=== PATIENT | male | born 1995 ===

== ENCOUNTER 2018-02-16 18:00 | Inpatient (IN) | payer MEDICAID, OTHER ==
[2018-02-16] MEDS ORDERED: Morphine 4 MG/ML VIAL ONE ×2 (18:24→20:15)
[2018-02-16] MEDS ORDERED: Tdap Vaccine 0.5 ml Vial (10-64 yrs) IM ONE ×2 (18:27→18:33)
--- NOTE | 2018-02-16 18:27 | ED PDOC ---
Upper Extremity Pain/Injury Time Seen by Provider: 02/16/18 18:05 Chief Complaint (Nursing): Upper Extremity Problem/Injury Chief Complaint (Provider): Upper Extremity Problem/Injury History Per: Patient History/Exam Limitations: no limitations Current Symptoms Are (Timing): Still Present Additional Complaint(s): 23 y/o male presents to the ED complaining of left forearm pain s/p skateboard fall at approximately 2.5 hours prior to arrival. Patient states he slipped and fell landing on his left forearm. Patient states last meal was at 2 PM today and he last drank water after fall due to lightheadedness. PMD: None Provided Past Medical History Reviewed: Historical Data, Nursing Documentation, Vital Signs Vital Signs: Last Vital Signs Temp 97.7 F 02/16/18 18:06 Pulse 79 02/16/18 18:06 Resp 18 02/16/18 18:06 BP 139/92 H 02/16/18 18:06 Pulse Ox 98 02/16/18 18:06 - Medical History PMH: No Chronic Diseases - Surgical History Surgical History: No Surg Hx - Family History Family History: States: Unknown Family Hx - Social History Current smoker - smoking cessation education provided: No Alcohol: None Drugs: Denies - Allergies Allergies/Adverse Reactions: Allergies Allergy/AdvReac Type Severity Reaction Status Date / Time No Known Allergies Allergy Verified 02/16/18 18:06 Review of Systems ROS Statement: Except As Marked, All Systems Reviewed And Found Negative Musculoskeletal: Positive for: Arm Pain (Left forearm pain ) Physical Exam - Reviewed Nursing Documentation Reviewed: Yes Vital Signs Reviewed: Yes - Physical Exam Appears: Positive for: Non-toxic, No Acute Distress Head Exam: Positive for: ATRAUMATIC, NORMOCEPHALIC Skin: Positive for: Normal Color, Warm, Dry Eye Exam: Positive for: Normal appearance, EOMI, PERRL Neck: Positive for: Normal, Painless ROM Cardiovascular/Chest: Positive for: Regular Rate, Rhythm. Negative for: Murmur Respiratory: Positive for: Normal Breath Sounds. Negative for: Respiratory Distress Gastrointestinal/Abdominal: Positive for: Normal Exam Extremity: Positive for: Deformity (to the left forearm with open wound ) Neurologic/Psych: Positive for: Alert, Oriented (x3). Negative for: Motor/ Sensory Deficits - Laboratory Results Result Diagrams: 02/17/18 05:30 02/17/18 05:30 - ECG O2 Sat by Pulse Oximetry: 98 (RA) Pulse Ox Interpretation: Normal Medical Decision Making Medical Decision Making: -- CODE ORTHO called upon arrival to the ED labs and morphine ordered pt in distress due to L open radius ulna fracture Time: 1849 Plan: -- Type and Screen -- CMP -- CBC with differentials -- PTT -- Prothrombin Time -- Ancef IV 2 gm DUPLEX in 50 ml IVPB -- Adacel (10-64 yrs) 0.5 ml IM -- Morphine 4 mg IV -- Unasyn 3 gm (after spoke to orthopedics they requested changed to ancef) Sodium Chloride 0.9% 100 ml IVPB -- Blood Culture -- Left Forearm XR -- Call made to Esperanza Sutton (ortho manager inspection) who states he is unsure if he is the one manager inspection but will call back once he is sure. -- Herman calls back and states he is in fact the one manager inspection and instructed to apply a sugar tong splint after complete irrigation, immobilize him and he will call back with update. informed pt of plan. Time: 2099 -- Patient endorsed to Dr. Hogan, pending Orthopedic consultation. Scribe Attestation: Documented by Radha Marrufo acting as a scribe for Dr. Juan Manuel Hogan MD. Provider Scribe Attestation: All medical record entries made by the Scribe were at my direction and personally dictated by me. I have reviewed the chart and agree that the record accurately reflects my personal performance of the history, physical exam, medical decision making, and the department course for this patient. I have also personally directed, reviewed, and agree with the discharge instructions and disposition. Disposition - Clinical Impression Clinical Impression: Open left forearm fracture - Patient ED Disposition Is Patient to be Admitted: Transfer of Care - Disposition Disposition: Transfer of Care Disposition Time: 19:00 Condition: FAIR Patient Signed Over To: Juan Manuel Hogan
[2018-02-16 19:11] LABS: BASO % 0.3 % (0.0-2.0); EOS # 0.1 K/uL (0.0-0.7); EOS % 0.8 % (0.0-4.0); HEMOGLOBIN 15.9 g/dL (12.0-18.0); LYMPH # 1.2 K/uL (1.0-4.3); LYMPH % 10.9 % (20.0-40.0); MEAN CORPUSCULAR HEMOGLOBIN 30.9 pg (27.0-31.0); MEAN CORPUSCULAR HGB CONC 34.4 g/dL (33.0-37.0); MEAN PLATELET VOLUME 9.1 fl (7.2-11.7); MONO # 0.7 K/uL (0.0-0.8); MONO % 6.1 % (0.0-10.0); NEUT # 9.3 K/uL (1.8-7.0); NEUT % 81.9 % (50.0-75.0); RBC 5.15 Mil/uL (4.40-5.90); RED CELL DISTRIBUTION WIDTH 13.3 % (11.5-14.5); WHITE BLOOD COUNT 11.3 K/uL (4.8-10.8)
[2018-02-16 19:13] LABS: PROTHROMBIN TIME 11.2 Seconds (9.8-13.1)
[2018-02-16 19:16] LABS: PARTIAL THROMBOPLASTIN TIME 25.1 Seconds (25.6-37.1)
[2018-02-16 19:17] LABS: ALB/GLOB RATIO 1.8 (1.0-2.1); ALBUMIN 4.7 g/dL (3.5-5.0); ALT/SGPT 77 U/L (21-72); AST/SGOT 45 U/L (17-59); BLOOD UREA NITROGEN 18 mg/dl (9-20); CALCIUM 9.3 mg/dL (8.4-10.2); GFR AFRICAN-AMERICAN > 60; GFR NON-AFRICAN AMERICAN > 60
--- NOTE | 2018-02-16 19:27 | ED PDOC ---
- Laboratory Results Result Diagrams: 02/16/18 18:50 02/16/18 18:50 - ECG O2 Sat by Pulse Oximetry: 98 (RA) Pulse Ox Interpretation: Normal Medical Decision Making Medical Decision Making: Time: 1899 -- Patient endorsed to provider by Dr. Horton, pending Orthopedic consultation. Time: 2050 -- Phone call received from Dr. Hernández for description of wound to the left forearm. Dr. Hernández asked provider to remove dressing and apply mild damp dressing and re-dress and apply sugar tong splint. which was done as requested. 1.5 cm irregular stellate laceration conveyed to Dr. Hernández and asked for patient to be admitted under the hospitalist service and will be taking patient to the OR for further repair. Case d/w Anesthesia cushion maker (Dr Guajardo); patient drank large amount of water at 6pm and full meal at 2pm; unable to have general anesthesia until some time after 10pm. This was conveyed to Dr Hernández -- On reexam after new splint placement; patient's fingers are warm to touch, neurovascularly intact, capillary refill > 2 seconds of, normal sensations and movement to the left fingers. Case referred to Dr Gregoria Hoff for admission Scribe Attestation: Documented by Radha Marrufo acting as a scribe for Dr. Juan Manuel Hogan MD. Provider Scribe Attestation: All medical record entries made by the Scribe were at my direction and personally dictated by me. I have reviewed the chart and agree that the record accurately reflects my personal performance of the history, physical exam, medical decision making, and the department course for this patient. I have also personally directed, reviewed, and agree with the discharge instructions and disposition. Disposition Discussed With : Whitney Man Comment: Patient to be admitted under Hospitalist service. Dr. Hernández will take the patient to the OR for further repair. Doctor Will See Patient In The: Hospital - Clinical Impression Clinical Impression: Open left forearm fracture - POA Present On Arrival: None, Falls Or Trauma - Disposition Disposition: Admitted as In-Patient Disposition Time: 20:51 Condition: FAIR
[2018-02-16] MEDS: ceFAZolin IV 2 gm in Dextrose 2 GM/50 ML BAG IVPB SCH (19:49)
--- NOTE | 2018-02-16 20:58 | CP.PCM.HP ---
History of Present Illness - History of Present Illness History of Present Illness: CC: fell HPI: 23 year old male no past medical history presents to ED after falling while skateboarding. Pt was found to have L open radial and ulna fractures. Pt states he has sharp, aching, moderate L arm pain, non radiating. Currently controlled, NV intact. Arm wrapped and immobilized in ED, Dr. Man on consult for ortho, likely OR in AM. NPO, maintenance fluids, pain control. HD stable, NAD. ROS: per HPI all other systems reviewed and negative PMSH: denies FH: denies SH: marijuana use only 3x.wk, denies ETOH, IVDU no meds, NKDA Present on Admission - Present on Admission Any Indicators Present on Admission: No Past Patient History - Past Social History Alcohol: None Drugs: Denies - PSYCHIATRIC Hx Substance Use: Yes - SURGICAL HISTORY Hx Surgeries: No - ANESTHESIA Hx Anesthesia: No Meds Allergies/Adverse Reactions: Allergies Allergy/AdvReac Type Severity Reaction Status Date / Time No Known Allergies Allergy Verified 02/16/18 18:06 Physical Exam - Constitutional Appears: Non-toxic, No Acute Distress, In Acute Distress - Head Exam Head Exam: ATRAUMATIC, NORMOCEPHALIC - Eye Exam Eye Exam: EOMI, Normal appearance - ENT Exam ENT Exam: Mucous Membranes Moist, Normal Exam - Respiratory Exam Respiratory Exam: Clear to Auscultation Bilateral, NORMAL BREATHING PATTERN - Cardiovascular Exam Cardiovascular Exam: RRR, +S1, +S2 - GI/Abdominal Exam GI & Abdominal Exam: Normal Bowel Sounds, Soft - Extremities Exam Additional comments: NV INTACT L ARM WRAPPED - Back Exam Back exam: NORMAL INSPECTION. absent: vertebral tenderness - Neurological Exam Neurological exam: Alert, Normal Gait, Oriented x3 - Psychiatric Exam Psychiatric exam: Normal Affect, Normal Mood - Skin Skin Exam: Dry, Warm Results - Vital Signs Recent Vital Signs: Last Vital Signs Temp 98.7 F 02/16/18 20:48 Pulse 79 02/16/18 20:48 Resp 14 02/16/18 20:48 BP 130/83 02/16/18 20:48 Pulse Ox 98 02/16/18 20:57 - Labs Result Diagrams: 02/16/18 18:50 02/16/18 18:50 Labs: Laboratory Results - last 24 hr 02/16/18 02/16/18 02/16/18 18:50 18:50 18:50 WBC 11.3 H RBC 5.15 Hgb 15.9 Hct 46.3 MCV 90.0 MCH 30.9 MCHC 34.4 RDW 13.3 Plt Count 226 MPV 9.1 Neut % (Auto) 81.9 H Lymph % (Auto) 10.9 L Cottle % (Auto) 6.1 Eos % (Auto) 0.8 Baso % (Auto) 0.3 Neut # (Auto) 9.3 H Lymph # (Auto) 1.2 Cottle # (Auto) 0.7 Eos # (Auto) 0.1 Baso # (Auto) 0.0 PT 11.2 INR 1.0 APTT 25.1 L Sodium 140 Potassium 3.5 L Chloride 102 Carbon Dioxide 29 Anion Gap 13 BUN 18 Creatinine 1.0 Est GFR ( Amer) > 60 Est GFR (Non-Af Amer) > 60 Random Glucose 104 Calcium 9.3 Total Bilirubin 1.2 AST 45 ALT 77 H Alkaline Phosphatase 74 Total Protein 7.3 Albumin 4.7 Globulin 2.6 Albumin/Globulin Ratio 1.8 BBK History Checked 02/16/18 18:50 WBC RBC Hgb Hct MCV MCH MCHC RDW Plt Count MPV Neut % (Auto) Lymph % (Auto) Cottle % (Auto) Eos % (Auto) Baso % (Auto) Neut # (Auto) Lymph # (Auto) Cottle # (Auto) Eos # (Auto) Baso # (Auto) PT INR APTT Sodium Potassium Chloride Carbon Dioxide Anion Gap BUN Creatinine Est GFR ( Amer) Est GFR (Non-Af Amer) Random Glucose Calcium Total Bilirubin AST ALT Alkaline Phosphatase Total Protein Albumin Globulin Albumin/Globulin Ratio BBK History Checked No verified bt Assessment & Plan - Assessment and Plan (Free Text) Plan: 23 year old male no past medical history presents to ED after falling while skateboarding. Pt was found to have L open radial and ulna fractures. Pt states he has sharp, aching, moderate L arm pain, non radiating. Currently controlled, NV intact. Arm wrapped and immobilized in ED, Dr. Man on consult for ortho , likely OR in AM. NPO, maintenance fluids, pain control. HD stable, NAD. L ULNA, RADIAL FRACTURES TRAUMA - NV intact - Ortho Dr. Man, likely OR in AM - pt arm immobilized and wrapped in ED - pain control - ancef per ortho - received tetanus in ed - NPO, maintenance fluids DVT ppx pt ambulates, SCDs
[2018-02-16] MEDS: Potassium Ch 20mEq in D5-1/2NS 1,000 ML IV SCH (22:18)
[2018-02-17] MEDS: ceFAZolin IV 2 gm in Dextrose 2 GM/50 ML BAG IVPB SCH ×3 (00:40→17:51)
[2018-02-17] MEDS: Potassium Ch 20mEq in D5-1/2NS 1,000 ML IV SCH ×3 (05:00→21:00)
[2018-02-17 06:12] LABS: BASO % 0.1 % (0.0-2.0); EOS % 0.5 % (0.0-4.0); HEMOGLOBIN 15.8 g/dL (12.0-18.0); MEAN CELL VOLUME 89.5 fl (80.0-94.0); MEAN CORPUSCULAR HEMOGLOBIN 30.9 pg (27.0-31.0); MEAN CORPUSCULAR HGB CONC 34.5 g/dL (33.0-37.0); MEAN PLATELET VOLUME 9.4 fl (7.2-11.7); MONO # 0.8 K/uL (0.0-0.8); MONO % 8.2 % (0.0-10.0); NEUT # 8.2 K/uL (1.8-7.0); NEUT % 81.2 % (50.0-75.0); RBC 5.13 Mil/uL (4.40-5.90); RED CELL DISTRIBUTION WIDTH 13.3 % (11.5-14.5)
[2018-02-17 06:32] LABS: BLOOD UREA NITROGEN 13 mg/dl (9-20); CALCIUM 8.7 mg/dL (8.4-10.2); GFR AFRICAN-AMERICAN > 60; GFR NON-AFRICAN AMERICAN > 60
[2018-02-17] MEDS ORDERED: Rocuronium 10 mg/ml (5 ml) ONE ×3 (07:19→14:10)
[2018-02-17] MEDS ORDERED: Succinylcholine 200 mg/10 ml Inj IV ONE ×2 (07:19→12:34)
[2018-02-17] MEDS ORDERED: Propofol 10 mg/ml Inj (20 ML) ONE ×2 (07:19→12:26)
[2018-02-17] MEDS ORDERED: Dexamethasone 4 mg/1 ml ONE ×2 (07:22→12:31)
[2018-02-17] MEDS ORDERED: Lidocaine 4% (Laryng-O-Jet) Kit MM ONE ×2 (07:34→12:27)
[2018-02-17] MEDS ORDERED: Midazolam 2 MG/2 ML VIAL ONE ×2 (07:48→13:18)
[2018-02-17] MEDS ORDERED: Etomidate 20 mg/10ml Inj IV ONE (07:50)
--- NOTE | 2018-02-17 08:00 | RAD ---
Date of service: 02/16/2018 PROCEDURE: Radiographs of the Left Forearm HISTORY: fall COMPARISON: None available. TECHNIQUE: Frontal and lateral views obtained. FINDINGS: BONES: There is an apparent compound fracture of the distal diaphysis of the ulna and possibly also with the radius as emphysematous changes are associated at both fracture sites. The cortex is seen minimally extending beyond the dermis at the distal ulnar fracture site in the lateral view. Both fractures appear to be spiral fractures limited lateral/proximal distraction of both major distal fracture fragments. JOINT SPACES: Unremarkable. OTHER FINDINGS: None. IMPRESSION: Compound ulnar fracture distal left ulnar diaphysis and likely also compound at the distal radial diaphysis. Please see discussion above.
[2018-02-17] MEDS ORDERED: Sevoflurane - Inhalation Anesthetic Liq (250 ml) ONE (08:13)
--- NOTE | 2018-02-17 11:42 | CP.PCM.PN ---
<Jolly Alvarado - Last Filed: 02/17/18 14:41> Subjective - Date & Time of Evaluation Date of Evaluation: 02/17/18 Time of Evaluation: 10:45 - Subjective Subjective: Patient seen and examined this AM by Dr. Heath & Jolly Banks, PGY -1 23 y/o M who presented to the ED with left arm pain yesterday after falling off of his skateboard onto his left arm. Patient denied any injury to the head with the fall or LOC. Patient was found to have Left ulna & Left radial fractures. Patient is not currently complaining of pain. Objective - Vital Signs/Intake and Output Vital Signs (last 24 hours): Temp Pulse Resp BP Pulse Ox 98.1 F 61 20 128/86 97 02/17/18 08:17 02/17/18 08:17 02/17/18 08:17 02/17/18 08:17 02/17/18 08:17 - Medications Medications: Current Medications Cefazolin Sodium/Dextrose (Ancef Iv 2 Gm Duplex) 2 gm in 50 mls @ 50 mls/hr IVPB STAT MICKIE PRN Reason: Protocol Last Admin: 02/16/18 19:49 Dose: 50 mls/hr Potassium Chloride/Dextrose/Sod Cl (Potassium Chl 20 Meq In D5-1/2ns) 1,000 mls @ 125 mls/hr IV .[facility]8H [facility] Stop: 02/17/18 21:00 Last Admin: 02/17/18 05:00 Dose: Not Given Cefazolin Sodium/Dextrose (Ancef Iv 2 Gm Duplex) 2 gm in 50 mls @ 50 mls/hr IVPB Q8 MICKIE PRN Reason: Protocol Last Admin: 02/17/18 08:23 Dose: 50 mls/hr Morphine Sulfate (Morphine) 2 mg IVP Q4 PRN PRN Reason: Pain, moderate (4-7) Morphine Sulfate (Morphine) 4 mg IVP Q4 PRN PRN Reason: Pain, severe (8-10) Ondansetron HCl (Zofran Inj) 4 mg IVP Q6 PRN PRN Reason: Nausea/Vomiting - Labs Labs: 02/17/18 05:30 02/17/18 05:30 PT 11.2 Seconds (9.8-13.1) 02/16/18 18:50 INR 1.0 02/16/18 18:50 APTT 25.1 Seconds (25.6-37.1) L 02/16/18 18:50 - Constitutional Appears: Non-toxic, No Acute Distress, Other (Patient awake laying comfortably in bed with left arm immbolized. Patient does not appear in any acute distress) - Head Exam Head Exam: ATRAUMATIC - Eye Exam Eye Exam: EOMI - Neck Exam Neck Exam: Normal Inspection - Respiratory Exam Respiratory Exam: Clear to Ausculation Bilateral - Cardiovascular Exam Cardiovascular Exam: REGULAR RHYTHM, +S1, +S2 - GI/Abdominal Exam GI & Abdominal Exam: Soft, Normal Bowel Sounds Additional comments: no organomegaly, no rigidity, no guarding - Neurological Exam Neurological Exam: Oriented x3 Neuro motor strength exam: Right Upper Extremity: 5, Left Lower Extremity: 5, Right Lower Extremity: 5 Additional comments: sensation of digits of the left hand as well as the right hand intact - Psychiatric Exam Psychiatric exam: Normal Affect - Skin Skin Exam: Dry, Intact Assessment and Plan - Assessment and Plan (Free Text) Assessment: 23 y/o M who presented to ED for left arm pain after falling off of his skateboard. Patient was found to have fracture of left ulnar and radius. Tetanus vaccine was given in ED. Left Ulnar & radial fractures -Will continue NPO -Morphine PRN pain -Will continue ancef as per Ortho -Ortho Dr. Oneal, OR today DVT prophylaxis -Patient is ambulatory, SCD's <Catrina Heath - Last Filed: 02/17/18 15:16> Objective - Vital Signs/Intake and Output Vital Signs (last 24 hours): Temp Pulse Resp BP Pulse Ox 98.1 F 61 20 128/86 97 02/17/18 08:17 02/17/18 08:17 02/17/18 08:17 02/17/18 08:17 02/17/18 08:17 Intake and Output: 02/17/18 02/17/18 06:59 18:59 Intake Total 1000 Balance 1000 - Medications Medications: Current Medications Cefazolin Sodium/Dextrose (Ancef Iv 2 Gm Duplex) 2 gm in 50 mls @ 50 mls/hr IVPB STAT MICKIE PRN Reason: Protocol Last Admin: 02/16/18 19:49 Dose: 50 mls/hr Potassium Chloride/Dextrose/Sod Cl (Potassium Chl 20 Meq In D5-1/2ns) 1,000 mls @ 125 mls/hr IV .Q8H [facility] Stop: 02/17/18 21:00 Last Admin: 02/17/18 12:43 Dose: Not Given Cefazolin Sodium/Dextrose (Ancef Iv 2 Gm Duplex) 2 gm in 50 mls @ 50 mls/hr IVPB Q8 MICKIE PRN Reason: Protocol Last Admin: 02/17/18 08:23 Dose: 50 mls/hr Morphine Sulfate (Morphine) 2 mg IVP Q4 PRN PRN Reason: Pain, moderate (4-7) Morphine Sulfate (Morphine) 4 mg IVP Q4 PRN PRN Reason: Pain, severe (8-10) Ondansetron HCl (Zofran Inj) 4 mg IVP Q6 PRN PRN Reason: Nausea/Vomiting - Labs Labs: 02/17/18 05:30 02/17/18 05:30 PT 11.2 Seconds (9.8-13.1) 02/16/18 18:50 INR 1.0 02/16/18 18:50 APTT 25.1 Seconds (25.6-37.1) L 02/16/18 18:50 Attending/Attestation - Attestation I have personally seen and examined this patient.: Yes I have fully participated in the care of the patient.: Yes I have reviewed all pertinent clinical information, including history, physical exam and plan: Yes
[2018-02-17] MEDS ORDERED: ceFAZolin IV 1 gm in Dextrose 2 GM/100 ML BAG IVPB ONE (12:57)
[2018-02-17] MEDS ORDERED: Desflurane Inhalation Anesthetic Liq (240 ml) ONE (13:24)
[2018-02-17] MEDS ORDERED: Lactated Ringer's 1,000 ML IV ONE ×2 (13:30→16:00)
[2018-02-17] MEDS ORDERED: HYDROmorphone 1 mg/ml ISec IVP PRN (17:34)
[2018-02-17] MEDS ORDERED: Oxycodone/Acetaminophen 5/325 mg Tab PO PRN ×2 (17:36)
[2018-02-17] MEDS ORDERED: HYDROmorphone 0.5 mg/0.5 ml ISec IVP PRN (17:39)
--- NOTE | 2018-02-17 18:11 | RAD ---
Date of service: 02/17/2018 PROCEDURE: Intraoperative Fluoroscopy. HISTORY: C-ARM FINDINGS: Fluoroscopic assistance was provided for open reduction internal fixation. Please refer to the operative report from CH[facility] Aponte.
--- NOTE | 2018-02-17 18:40 | RAD ---
Date of service: 02/17/2018 PROCEDURE: Radiographs of the Left Forearm HISTORY: s/p left arm ORIF COMPARISON: None available. TECHNIQUE: Frontal and lateral views obtained. FINDINGS: BONES: Status post ORIF distal radial and ulnar diaphyseal fractures with plate and screw fixation devices. Normal alignment achieved. JOINT SPACES: Unremarkable. OTHER FINDINGS: None. IMPRESSION: ORIF distal radius and ulna.
[2018-02-17] MEDS ORDERED: ceFAZolin IV 2 gm in Dextrose 2 GM/50 ML BAG IVPB SCH (22:00)
[2018-02-18] MEDS ORDERED: ceFAZolin IV 2 gm in Dextrose 2 GM/50 ML BAG IVPB STA (00:40)
[2018-02-18] MEDS: Lactated Ringer's 1,000 ML IV SCH ×2 (04:00→05:27)
[2018-02-18] MEDS: ceFAZolin IV 2 gm in Dextrose 2 GM/50 ML BAG IVPB SCH ×3 (05:17→22:15)
--- NOTE | 2018-02-18 13:24 | CP.PCM.PN ---
Subjective - Date & Time of Evaluation Date of Evaluation: 02/18/18 Time of Evaluation: 13:00 - Subjective Subjective: Pt is afebrile He states that his pain is controlled sl numbness of left arm Left arm elevated to pole Splint in place Pt ambulates to the bathroom by himself denies CP no SOB, no abd pain Objective - Vital Signs/Intake and Output Vital Signs (last 24 hours): Temp Pulse Resp BP Pulse Ox 98.2 F 68 20 128/72 97 02/18/18 08:15 02/18/18 08:15 02/18/18 08:15 02/18/18 08:15 02/18/18 08:15 Intake and Output: 02/18/18 02/18/18 06:59 18:59 Output Total 250 Balance -250 - Medications Medications: Current Medications Hydromorphone HCl (Dilaudid) 1 mg IVP Q4 PRN PRN Reason: Pain, severe (8-10) Cefazolin Sodium/Dextrose (Ancef Iv 2 Gm Duplex) 2 gm in 50 mls @ 50 mls/hr IVPB STAT MICKIE PRN Reason: Protocol Last Admin: 02/16/18 19:49 Dose: 50 mls/hr Lactated Ringer's (Lactated Ringer's) 1,000 mls @ 100 mls/hr IV .Q10H [facility] Last Admin: 02/18/18 05:27 Dose: 100 mls/hr Cefazolin Sodium/Dextrose (Ancef Iv 2 Gm Duplex) 2 gm in 50 mls @ 50 mls/hr IVPB Q8@0600,1400,2200 [facility] PRN Reason: Protocol Last Admin: 02/18/18 05:17 Dose: 50 mls/hr Morphine Sulfate (Morphine) 2 mg IVP Q4 PRN PRN Reason: Pain, moderate (4-7) Last Admin: 02/18/18 01:04 Dose: 2 mg Morphine Sulfate (Morphine) 4 mg IVP Q4 PRN PRN Reason: Pain, severe (8-10) Ondansetron HCl (Zofran Inj) 4 mg IVP Q6 PRN PRN Reason: Nausea/Vomiting Oxycodone/Acetaminophen (Percocet 5/325 Mg Tab) 1 tab PO Q4 PRN PRN Reason: Pain, Mild (1-3) Stop: 02/20/18 17:37 Oxycodone/Acetaminophen (Percocet 5/325 Mg Tab) 2 tab PO Q6 PRN PRN Reason: Pain, moderate (4-7) Stop: 02/20/18 17:37 Last Admin: 02/17/18 23:04 Dose: 2 tab - Labs Labs: 02/17/18 05:30 02/17/18 05:30 PT 11.2 Seconds (9.8-13.1) 02/16/18 18:50 INR 1.0 02/16/18 18:50 APTT 25.1 Seconds (25.6-37.1) L 02/16/18 18:50 - Constitutional Appears: Non-toxic, No Acute Distress - Head Exam Head Exam: ATRAUMATIC, NORMAL INSPECTION, NORMOCEPHALIC - Eye Exam Eye Exam: EOMI, Normal appearance, PERRL Pupil Exam: NORMAL ACCOMODATION - ENT Exam ENT Exam: Mucous Membranes Moist, Normal External Ear Exam - Neck Exam Neck Exam: Full ROM. absent: Meningismus - Respiratory Exam Respiratory Exam: NORMAL BREATHING PATTERN. absent: Respiratory Distress - Cardiovascular Exam Cardiovascular Exam: REGULAR RHYTHM, +S1, +S2 - GI/Abdominal Exam GI & Abdominal Exam: Soft, Normal Bowel Sounds. absent: Tenderness - Extremities Exam Extremities Exam: Full ROM, Normal Capillary Refill. absent: Calf Tenderness, Pedal Edema Additional comments: Left arm with dressing/splint , wrapped with JULISA bandage , arm elevated and attached to pole no sensory deficits able to move fingers - Back Exam Back Exam: absent: CVA tenderness (L), CVA tenderness (R) - Neurological Exam Neurological Exam: Alert, Awake, CN II-XII Intact, Oriented x3 Neuro motor strength exam: Right Upper Extremity: 5, Left Lower Extremity: 5, Right Lower Extremity: 5 - Psychiatric Exam Psychiatric exam: Normal Affect, Normal Mood - Skin Skin Exam: Dry, Normal Color, Warm Assessment and Plan (1) Open left forearm fracture Status: Acute (2) S/P ORIF (open reduction internal fixation) fracture Status: Acute (3) Open wound of forearm Status: Acute - Assessment and Plan (Free Text) Assessment: 23 y/o male , no PMH, presented to the ED after a fall while skateboarding. Complained of left arm pain. Imaging showed Left Forearm fracture. Ortho consulted- Dr Giovanny Pierson- pt underwent ORIF on 02/17. (1) Open left forearm Displaced fracture of ulna and radius mid shaft Status: Acute (2) S/P ORIF (open reduction internal fixation) fracture with Incision and drainage of wound Status: Acute (3) Open wound of forearm Status: Acute - Pt doing well post op - Pain mgt - Keep arm elevated - Ortho Dr Giovanny Pierson following pt - recommended to continue IV Ancef due to open wound. - we will continue to monitor pt in the hospital and cont IV antibiotics DVT proph: - Pt is ambulatory
--- NOTE | 2018-02-18 16:00 | PCM.SURG1 ---
Surgeon's Initial Post Op Note - Surgeon's Notes Surgeon: Whitney Sutton MD Bag Shop Worker: Jesenia Mcgovern PA-C Type of Anesthesia: General Endo Pre-Operative Diagnosis: Left forearm: #1 Open displaced ulnar mid shaft fracture (Grade 1 open injury). #2 closed displaced radial mid shaft fracture Operative Findings: Left forearm: #1 Open displaced ulnar mid shaft fracture ( Grade 2 open injury). #2 Closed displaced radial mid shaft fracture. #3 Open wound with mild contamination in the form of asphalt particles easily debrided/ removed, no evidence of infection, grade 2 wound Post-Operative Diagnosis: Left forearm: #1 Open displaced ulnar mid shaft fracture (Grade 2 open injury). #2 Closed displaced radial mid shaft fracture. #3 Open wound with mild contamination in the form of asphalt particles easily debrided/ removed, no evidence of infection, grade 2 wound Operation Performed: Left Forearm: #1 I&D open wound and fracture mid-shaft ulna. #2 ORIF displaced mid-shaft ulna fracture. #3 ORIF displaced mid-shaft radius fracture. #4 primary closure open wound. #5 placement in long arm splint Specimen/Specimens Removed: specimen= none. tourniquet time = 120min at 250mmHg. complications= none. Implants=. #1 synthes 2.7 LCP mini-frag plate and 2.7 lag screws for ulna fixation. #2 synthes 3.5 LCP small frag locking plate for radius fixation. #3 DBM putty bone grating for ulna fracture 0.5cc Estimated Blood Loss: EBL {In ML}: 50 Blood Products Given: N/A Drains Used: No Drains Post-Op Condition: Good Date of Surgery/Procedure: 02/17/18 Time of Surgery/Procedure: 17:00
--- NOTE | 2018-02-18 16:17 | CP.PCM.CON ---
History of Present Illness - History of Present Illness History of Present Illness: 23-year-old male, RHD, with no significant PMH, presented to the ER at [facility] at approximately 7 PM 02/16/18 evening with left forearm pain and deformity. He states that he was riding his skateboard on the street when he fell landing on outstretched left arm resulting in immediate 10/10 pain and deformity localized to left mid forearm. He admits to an open wound without visualization of bone. He states that he had a full cup of water and a meal immediately after the injury at approximately 6 PM prior to going to the ER. After evaluation by ER staff and review of imaging, he was diagnosed with an open left forearm both bones displaced fracture (open displaced fracture of mid shaft ulna with closed displaced fracture of mid shaft radius). Orthopedic consultation was placed and I was heavily involved with management of this patient's from initial presentation in the ER to surgery the next morning. I reviewed the imaging and confirmed that indeed there was a displaced midshaft ulna and radius fracture with a visible area where the proximal ulna fragment most likely penetrated the overlying soft tissue. Review of clinical photographs taken by ER staff confirmed grade 1, possible low grade 2 open ulna fracture. ER staff reported no gross contamination. It was determined after consulting with anesthesia staff on-call that it was not feasible to undergo formal irrigation and debridement of the open fracture ORIF in the OR until he was without any oral intake of food or water for at least 8 hours. that would bring us to approximately 3 AM at which point it would be safe to proceed with General anesthesia. Therefore, initial treatment was done by ER staff and he was admitted to the medical service in preparation for surgical intervention the next morning. He received tetanus booster and IV antibiotics were started, the wound was copiously irrigated by ER staff, damp sterile dressing was placed over the wound, and he was placed in a sugar tong splint for stability. ER staff reported that he was neurovascularly intact upon presentation in the ER and during treatment. He was admitted to the medical service under the hospitalists, preop labs/EKG/ chest x-ray done, continued IV antibiotics, made NPO, and taken to the OR the next morning within 24 hours after injury. ROS: per HPI all other systems reviewed and negative PMSH: denies FH: denies SH: marijuana use only 3x.wk, denies ETOH, IVDU no meds, NKDA Past Patient History - Past Medical History & Family History Past Medical History?: No - Past Social History Smoking Status: Never Smoked - MUSCULOSKELETAL/RHEUMATOLOGICAL Hx Falls: Yes - PSYCHIATRIC Hx Substance Use: Yes - SURGICAL HISTORY Hx Surgeries: No - ANESTHESIA Hx Anesthesia: No Hx Anesthesia Reactions: No Hx Malignant Hyperthermia: Yes Has any member of the family had a problem w/ anesthesia?: Yes Meds Allergies/Adverse Reactions: Allergies Allergy/AdvReac Type Severity Reaction Status Date / Time No Known Allergies Allergy Verified 02/16/18 18:06 - Medications Medications: Current Medications Hydromorphone HCl (Dilaudid) 1 mg IVP Q4 PRN PRN Reason: Pain, severe (8-10) Cefazolin Sodium/Dextrose (Ancef Iv 2 Gm Duplex) 2 gm in 50 mls @ 50 mls/hr IVPB STAT [facility]IE PRN Reason: Protocol Last Admin: 02/16/18 19:49 Dose: 50 mls/hr Lactated Ringer's (Lactated Ringer's) 1,000 mls @ 100 mls/hr IV .Q10H [facility] Last Admin: 02/18/18 05:27 Dose: 100 mls/hr Cefazolin Sodium/Dextrose (Ancef Iv 2 Gm Duplex) 2 gm in 50 mls @ 50 mls/hr IVPB Q8@0600,1400,2200 [facility] PRN Reason: Protocol Last Admin: 02/18/18 14:41 Dose: 50 mls/hr Morphine Sulfate (Morphine) 2 mg IVP Q4 PRN PRN Reason: Pain, moderate (4-7) Last Admin: 02/18/18 01:04 Dose: 2 mg Morphine Sulfate (Morphine) 4 mg IVP Q4 PRN PRN Reason: Pain, severe (8-10) Ondansetron HCl (Zofran Inj) 4 mg IVP Q6 PRN PRN Reason: Nausea/Vomiting Oxycodone/Acetaminophen (Percocet 5/325 Mg Tab) 1 tab PO Q4 PRN PRN Reason: Pain, Mild (1-3) Stop: 02/20/18 17:37 Oxycodone/Acetaminophen (Percocet 5/325 Mg Tab) 2 tab PO Q6 PRN PRN Reason: Pain, moderate (4-7) Stop: 02/20/18 17:37 Last Admin: 02/17/18 23:04 Dose: 2 tab Physical Exam - Extremities Exam Additional comments: General: NAD, AO 3 Secondary survey done, no positive findings aside from left upper extremity injury. Right upper extremity: - TTP, - swelling/warmth/erythema/deformity, skin intact , full range of motion at all joints without pain, no instability +5/5 motor strength shoulder forward flexion/abduction/ER/IR, elbow flexion/ extension, wrist flexion/extension/supination/pronation, finger is extended and flexed at all joints/abduction and adduction Sensory intact C5-T2, ulnar nerve/radioulnar/median nerve/axillary nerve/ muscular cutaneous nerve 2+ radial artery pulse, brisk cap refill all fingers Left upper extremity: + +open wound at mid forearm level ulnar side, adjacent to the underlying ulnar fracture with no visible bone in the wound, no gross contamination visible, wound measures approximately 1.5 cm, no active bleeding, + small road rash abrasions along the ulnar aspect of forearm and elbow + Deformity and instability at mid forearm representing displaced same level both bone fracture No TTP at fingers/wrist/elbow/arm/shoulder, +5/5 motor strength shoulder forward flexion/abduction/ER/IR, elbow flexion/ extension, wrist flexion/extension/supination/pronation, fingers extended and flexed at all joints/abduction and adduction Sensory intact C5-T2, ulnar nerve/radioulnar/median nerve/axillary nerve/ muscular cutaneous nerve 2+ radial artery pulse, brisk cap refill all fingers Results - Vital Signs Recent Vital Signs: Last Vital Signs Temp 98.2 F 02/18/18 08:15 Pulse 68 02/18/18 08:15 Resp 20 02/18/18 08:15 BP 128/72 02/18/18 08:15 Pulse Ox 97 02/18/18 08:15 - Labs Result Diagrams: 02/17/18 05:30 02/17/18 05:30 Labs: Laboratory Results - last 24 hr 02/17/18 18:19 Blood Type Confirm B POSITIVE Assessment & Plan (1) Open left forearm fracture Assessment and Plan: 23-year-old male, RHD with left forearm deformity and pain with open wound since falling on the street while skateboarding at 6 PM on 02/16/18, presented to ER at [facility] on 02/17/18 at approximately 7 PM. Diagnosis = left forearm: #1 grade 1-2 (wound only measures 1.5 cm with no gross contamination) open displaced fracture midshaft ulna #2 displaced midshaft fracture radius full cup of water and meal at 6 PM prior to arrival in ER Plan: Left forearm: -Wound was copiously irrigated, sterile dressings placed, forearm immobilized in sugar tong splint, IV antibiotics initiated, tetanus booster updated in ER shortly after arrival by ER staff -he would not be able to undergo formal I&D and fracture fixation in the OR under general anesthesia until being NPO for 8 hours -Indicated for left forearm open both bones fracture irrigation and debridement of open wound and open fracture, ORIF mid shaft radius and ulnar fractures, primary wound closure as long as the wound and deep soft tissue did not exhibit significant gross contamination If on careful evaluation the wound and open fracture indeed exhibits gross contamination, then the procedure would be staged with an initial irrigation and debridement carried out in the morning, possible VAC placed and immobilized in a long-arm splint, then return to OR for second look at the wound and possible ORIF at that point as long as it is safe to proceed and wound shows no signs of infection most likely, there will only be mild contamination if any and we will proceed with ORIF both bones fracture after irrigation and debridement of open wound and open fracture followed by primary closure of wound if possible and placement in long arm splint -Pt will need to remain in the hospital and receive IV antibiotic either way postoperatively for at least 48-72 hours -As stated above if the procedure is staged, he will remain as an inpatient until his surgical care is completed -Literature supports urgent surgical intervention for open fractures including I &D and fracture fixation within 24 hour after injury as long as IV antibiotics are started immediately after presentation -Scheduled to undergo left forearm open both bones fracture I&D and ORIF the next morning within 24 hours after injury -Keep NPO -Continue IV antibiotics, 2 g Ancef once every 8 hours IV -Keep left forearm elevated above the level of his heart at all times -Monitor neurovascular status of left upper extremity -Preoperative medical evaluation -Medical care per primary team/hospitalist -pain control -Please contact me with any questions, updates, concerns at [phone] Thank you for allowing me to participate in the care of your patient Whitney Sutton MD Orthopedic surgery Status: Acute
[2018-02-19] MEDS: Lactated Ringer's 1,000 ML IV SCH
[2018-02-19] MEDS: ceFAZolin IV 2 gm in Dextrose 2 GM/50 ML BAG IVPB SCH ×3 (05:10→21:19)
[2018-02-19 08:02] LABS: BASO % 0.1 % (0.0-2.0); EOS % 0.4 % (0.0-4.0); HEMOGLOBIN 15.7 g/dL (12.0-18.0); LYMPH # 1.3 K/uL (1.0-4.3); LYMPH % 11.6 % (20.0-40.0); MEAN CELL VOLUME 88.8 fl (80.0-94.0); MEAN CORPUSCULAR HEMOGLOBIN 31.1 pg (27.0-31.0); MEAN PLATELET VOLUME 9.6 fl (7.2-11.7); MONO # 1.2 K/uL (0.0-0.8); MONO % 10.8 % (0.0-10.0); NEUT # 8.6 K/uL (1.8-7.0); NEUT % 77.1 % (50.0-75.0); NRBC % 0.1 % (0.0-0.0); RBC 5.04 Mil/uL (4.40-5.90); RED CELL DISTRIBUTION WIDTH 13.2 % (11.5-14.5); WHITE BLOOD COUNT 11.2 K/uL (4.8-10.8)
--- NOTE | 2018-02-19 10:34 | CP.PCM.PN ---
Subjective - Date & Time of Evaluation Date of Evaluation: 02/19/18 Time of Evaluation: 09:00 - Subjective Subjective: Patient seen and examined at bedside. Continues to be afebrile. Left arm elevated to pole with splint in place. Ambulatory. Denies cp, sob, n/v/d. No new complaints. For ortho reeval by Dr. Giovanny Hawkins in AM. Objective - Vital Signs/Intake and Output Vital Signs (last 24 hours): Temp Pulse Resp BP Pulse Ox 98.6 F 96 H 18 124/74 97 02/19/18 07:15 02/19/18 07:15 02/19/18 07:15 02/19/18 07:15 02/19/18 07:15 - Medications Medications: Current Medications Hydromorphone HCl (Dilaudid) 1 mg IVP Q4 PRN PRN Reason: Pain, severe (8-10) Cefazolin Sodium/Dextrose (Ancef Iv 2 Gm Duplex) 2 gm in 50 mls @ 50 mls/hr IVPB STAT [facility] PRN Reason: Protocol Last Admin: 02/16/18 19:49 Dose: 50 mls/hr Lactated Ringer's (Lactated Ringer's) 1,000 mls @ 100 mls/hr IV .Q10H [facility] Last Admin: 02/19/18 00:00 Dose: Not Given Cefazolin Sodium/Dextrose (Ancef Iv 2 Gm Duplex) 2 gm in 50 mls @ 50 mls/hr IVPB Q8@0600,1400,2200 [facility] PRN Reason: Protocol Last Admin: 02/19/18 05:10 Dose: 50 mls/hr Morphine Sulfate (Morphine) 2 mg IVP Q4 PRN PRN Reason: Pain, moderate (4-7) Last Admin: 02/18/18 01:04 Dose: 2 mg Morphine Sulfate (Morphine) 4 mg IVP Q4 PRN PRN Reason: Pain, severe (8-10) Ondansetron HCl (Zofran Inj) 4 mg IVP Q6 PRN PRN Reason: Nausea/Vomiting Oxycodone/Acetaminophen (Percocet 5/325 Mg Tab) 1 tab PO Q4 PRN PRN Reason: Pain, Mild (1-3) Stop: 02/20/18 17:37 Oxycodone/Acetaminophen (Percocet 5/325 Mg Tab) 2 tab PO Q6 PRN PRN Reason: Pain, moderate (4-7) Stop: 02/20/18 17:37 Last Admin: 02/17/18 23:04 Dose: 2 tab - Labs Labs: 02/19/18 05:30 02/17/18 05:30 PT 11.2 Seconds (9.8-13.1) 02/16/18 18:50 INR 1.0 02/16/18 18:50 APTT 25.1 Seconds (25.6-37.1) L 02/16/18 18:50 - Additional Findings Additional findings: Physical exam: Constitutional- cooperative, awake, alert Head- NCAT, PERRL Eye- PERRL, EOMI ENT- normal exam, MMM. Neck- normal inspection, supple, no JVD Respiratory- CTAB, no wheezes rales rhonchi Cardiovascular- RRR, +S1, +S2 no MRG GI/Abdominal- normal bowel sounds, soft, no mass, no hsm Skin- warm, dry Extremities Exam- + Left arm in splint, wrapped in bandage and elevated to pole. With no sensory deficits. normal capillary refill. Neurological Exam- alert, awake, oriented Psych- normal mood, normal affect Assessment and Plan - Assessment and Plan (Free Text) Plan: Assessment and Plan (1) Open left forearm fracture Status: Acute (2) S/P ORIF (open reduction internal fixation) fracture Status: Acute (3) Open wound of forearm Status: Acute - Assessment and Plan (Free Text) Assessment: 23 y/o male , no PMH, presented to the ED after a fall while skateboarding. Complained of left arm pain. Imaging showed Left Forearm fracture. Ortho consulted- Dr Giovanny Pierson- pt underwent ORIF on 02/17. (1) Open left forearm Displaced fracture of ulna and radius mid shaft Status: Acute (2) S/P ORIF (open reduction internal fixation) fracture with Incision and drainage of wound Status: Acute (3) Open wound of forearm Status: Acute - Pt doing well post op - Pain mgt - Keep arm elevated - Ortho Dr Giovanny Pierson following pt - recommended to continue IV Ancef due to open wound. - we will continue to monitor pt in the hospital and cont IV antibiotics - Dr. Giovanny Hawkins to reevaluate the patient in AM. DVT proph: - Pt is ambulatory
--- NOTE | 2018-02-20 01:24 | OP ---
Copied To: Whitney Sutton MD Attending MD: Whitney Sutton MD PROCEDURE DATE: 02/17/2018 PREOPERATIVE DIAGNOSES: Left forearm: 1. Grade 1 to 2 open both bones forearm fracture. 2. Open mid shaft displaced ulnar fracture. 3. Closed displaced radial mid shaft fracture. POSTOPERATIVE DIAGNOSES: Left forearm: 1. Grade 1 to 2 open both bones forearm fracture. 2. Open mid shaft displaced ulnar fracture. 3. Closed displaced radial mid shaft fracture. PROCEDURE: Left forearm: 1. Irrigation and debridement of open wound and open mid shaft ulnar fracture. 2. Open reduction and internal fixation, displaced mid shaft ulnar fracture. 3. Open reduction and internal fixation, displaced mid shaft radius fracture. 4. Primary closure open wound. 5. Placement in long-arm splint. SURGEON: Whitney Sutton MD COMMERCIAL FINANCE ANALYST: BERHANE Jaeger is a certified physician assistant branch manager whose skilled surgical service was an absolute necessity for successful completion of the procedure, a supervised skilled surgical nurse practitioner with positioning of the patient, positioning of extremity, management of neurovascular structures, retraction of the neurovascular structures, maintenance of temporary fracture reduction and placement of temporary fixation hardware, placement of plate and screws as permanent fixation hardware, irrigation and debridement of bone, irrigation and debridement of soft tissue and removal of contamination, primary wound closure and surgical wound closure, placement in long-arm splint. Jesenia Mcgovern was present for the entire case and was an absolute necessity for successful completion of the procedure. ANESTHESIA: General endotracheal anesthesia. SPECIMENS: None. TOURNIQUET TIME: 120 minutes of 250 mmHg. IMPLANTS: 1. DePuy Synthes 2.7 LCP Mini Fragment plate and 2.7 lag screws for ulnar shaft fracture fixation. 2. 3.5 LCP Small Fragment locking plate for radius fixation. 3. DBM putty bone grafting for ulnar fracture, 0.5 mL. DISPOSITION: The patient was extubated and transferred to PACU in stable condition and tolerated the procedure well. INDICATIONS FOR SURGERY: The patient is a 23-year-old male who is right-handed dominant with no significant past medical history who presented to the emergency room at [facility] on 02/16/2018 at approximately 7 p.m. with left forearm pain and deformity for 1 hour. He stated that he was riding his skate board on the street in [place] when he fell on to an outstretched left arm resulting in immediate 10/10 pain and deformity localized to the left mid forearm. He admitted to an open wound, but denies ever visualizing the bones sticking out. Prior to arrival in the ER, he had a full cup of water and a small meal immediately after the injury as well as a full lunch/meal at 3 p.m. Initial evaluation by ER staff and review of imaging gave him a diagnosis of an open displaced both-bones forearm fracture grade 1 to 2. Orthopedic consultation was placed and I managed his initial care remotely. Tetanus booster was administered as well as starting IV antibiotics in the form of 2 g of Ancef every 8 hours on arrival. The open wound was copiously irrigated by ER staff and a damp dressing was placed. He was then immobilized in a long-arm sugar tong splint that was well padded. Neurovascular exam was normal. X-rays confirmed a displaced both-bones forearm fracture. Being that his n.p.o. status was not compatible with undergoing emergent surgery, he was admitted to the hospital and underwent neurovascular checks and observation as well as continue with IV antibiotics and underwent emergency surgery the next morning. On evaluation, the wound measured approximately 1.2 to 1.5 cm with no growth contamination on the outside of the wound and the ulnar was not visible through the wound. There was a same level displaced both bones radius and ulnar fracture with the radius side being closed. He was indicated for emergent surgery consisting of irrigation and debridement of open wound and open ulnar fracture, proceeding with open reduction and internal fixation of both the ulnar and radial shaft fractures as long as there is no significant growth contamination or evidence of infection, primary closure of the open wound and mobilization. If the wound did exhibit gross contamination on surgical evaluation and exploration, then irrigation and debridement of the fracture and the wound would be carried out followed by placement of a VAC dressing and continuing IV antibiotics and observation for 48 hours followed by a return to the OR for exploration of the wound and possible open reduction and internal fixation of the both-bone fracture at that point in time. He was made n.p.o. on admission and it was safe to proceed the next morning. Preoperative medical evaluation was done by the primary hospitalist team, and he was deemed to be stable for surgery. PROCEDURE IN DETAIL: The patient was identified in the preoperative holding area and the left arm was marked for surgery. Once again as described above, the procedure consists of irrigation and debridement of the open wound and fracture, and depending on the level of contamination (most likely low level), we would proceed with open reduction and internal fixation or VAC wound closure followed by return trip to the OR in 48 hours. The risks, benefits, and alternatives of the procedure were discussed at length with the patient with the risks including, but not limited to infection, need for further surgery including repeat I and D, malunion, nonunion, need for further surgery including revision ORIF and bone grafting if malunion does develop or nonunion, development of chronic pain and disability, development of blood clots including DVT and PE, inability to return to preinjury level of activity, chronic disability, loss of limb, loss of function, PIN and AIN nerve damage, anesthesia reactions including . After answering all of his questions, he stated that he understood the risks and wished to proceed with the surgery. DESCRIPTION OF PROCEDURE: After a brief discussion with the anesthesia staff, the patient was taken to the operating room, placed in a well-padded operating room table with all bony prominences and superficial neurovascular structures well padded with a radiolucent hand table in position. The splint was removed, and the wound was evaluated after the patient was placed under general anesthesia without any difficulty or complication. An initial time-out was done with the surgeon, anesthesia staff, OR staff, all in agreement with the patient, procedure being done, and extremity being operated on. Once again, he was placed under general anesthesia without any difficulty or complication, and then the splint and dressings were removed to further evaluate. Again as described previously, the open wound was 1.2 x 1.5 cm with no visible growth contamination on the outside and the ulnar was not visible through the wound. The left upper extremity was prepped and draped in a standard sterile fashion with a tourniquet placed high on the left arm, but set to 250 mmHg. Perioperative IV antibiotics in the form of 2 g of Ancef were administered and biplanar fluoroscopic imaging was used to confirm the level of the fracture. Final time-out was done with the surgeon, anesthesia staff, OR staff, all are in agreement with the patient, procedure being done, and extremity being operated on. Left upper extremity was then exsanguinated and tourniquet was inflated at 250 mmHg for a total Tourniquet time of 120 minutes. The open wound was enlarged in a zigzag configuration as the wound was perpendicular to the long access of the arm horizontally across the mid shaft of the arm. The wound was extended distally and proximally in line with the ulnar shaft in a zigzag configuration at the level of the open wound. Incision was made to the skin down to the subcutaneous tissue while maintaining good hemostasis. Once we got deeper into the open wound, one small granule of asphalt was seen and identified and removed. The wound itself asides from this one small granule of asphalt, did not exhibit significant gross contamination or infection. We then proceeded to irrigate and debride the wound, removing all injured and nonviable tissue and skin as a resection, and irrigation and debridement with 3000 mL of normal saline with Bacitracin impregnated. We then exposed the proximal ulnar fracture fragment which was the fracture fragment went through the open wound. The fracture fragment did have some patino perhaps from hitting the asphalt, but no growth contamination as well. The edges of the bone for the proximal fragment were debrided with the use of a curette and a small rongeur. The ulnar fracture itself was copiously irrigated with another 3000 mL of normal saline. Once this was done with satisfaction, we then exposed the distal fragment and underwent irrigation and debridement as well. It was clear that the distal fragment did not actually go through the open wounds. Two lobster claw clamps were used to reduce the segmental butterfly fragment and the distal and proximal fragments. Biplanar fluoroscopic imaging confirmed anatomic reduction of the ulnar shaft. We then proceeded with placement of three 2.7 cm lag screws using AO technique. Two lag screws were placed through the butterfly fragment and the proximal ulnar fracture piece. One more lag screw was placed in the distal ulnar fragment and the butterfly segmental piece. The lag screws provided good stability for ability to place the Mini Fragment plate with K-wires. A 2.5 cm locking LCP Mini Fragment 10-hole plate was selected and placed to allow for sufficient fixation, both distal and proximal to the level of the fracture. We then placed one distal and proximal non-locking screw with compression with eccentric drilling of the hole to provide compression of the fracture. Once this was established, we then continued with placement of non-locking 2.7 screws proximally and distally to the fracture for placement of total of four non-locking screws of bicortical fixation proximal to the level of the segmental fracture as well as four non-locking 2.7 screws with bicortical fixation, distal to the level of the segmental fracture. Once the ulnar fixation was completed with satisfaction, all screw lengths were determined to be adequate. We then turned our attention to the radial shaft fracture treatment. A volar approach to the mid shaft radius was selected. Incision was started through the skin, subcutaneous tissue down to the level of the fascia. The FCR flexor carpi radialis muscle belly and tendon were identified and retracted laterally along with the radial artery while protecting them. The underlying flexor digitorum was identified and blunt dissection was carried out down to the level of the mid shaft radius fracture. Both the proximal and distal fragments were identified, and with the use of lobster claw clamps, anatomic reduction was carried out and confirmed with biplanar fluoroscopic imaging. A 7 hole 3.5 mm LCP plate was selected and temporary fixation was placed holding the plate in position followed by placement of one non-locking bicortical screw distal and proximal to the level of this transverse fracture. Once the plate was secured in position and compression was established, we then continued with placing two more screws distal to the fracture with bicortical fixation and two more screws proximal to the fracture with bicortical fixation. All 3.5 mm nonlocking screws with good fixation achieved. Once the radial fixation was completed, biplanar fluoroscopic imaging was used to confirm adequate length of the screws, all being bicortical, but not too long in both the radius and ulnar with maintenance of an anatomic reduction and advent of radial bone. Clinically, the arm was able to establish full pronation and supination without difficulty or a mechanical block. Both the radius and ulnar wound were copiously irrigated. We sequentially advanced to closing the deep tissue of both wounds with #1 Vicryl suture followed by 2-0 Vicryl suture of subcutaneous tissue through both wounds to spread the tension and to ensure adequate closure without being under too much tension. We then proceeded with jez for skin for both the radial and ulnar wounds. The area of open fracture wound was debrided off the necrotic skin edges and successfully reapproximated with the wound closure. Sterile dressings were applied to the wound as well as to the multiple road rash abrasions on the rest of the arm. Sterile cast padding was placed followed by placement in a sugar tong splint and a compressive JULISA wrap layer over the splints. Once the splints harden, the patient was then extubated and transferred to the PACU in stable condition and tolerated the procedure well. DISPOSITION: The patient will remain as an inpatient and receive IV antibiotics for at least 48 hours. He will be reevaluated after 48 hours and the wound will be checked. If at that point in time, he is progressing well clinically, then he may be discharged home and follow up in the office for followup care. He is to be strict nonweightbearing to the left upper extremity; keep the splint clean, dry, and intact at all times. I will monitor his progress as an inpatient. He will receive adequate pain control. Whitney Sutton MD
[2018-02-20] MEDS: ceFAZolin IV 2 gm in Dextrose 2 GM/50 ML BAG IVPB SCH ×3 (05:16→13:19)
[2018-02-20 07:00] LABS: HEMOGLOBIN 16.5 g/dL (12.0-18.0); MEAN CELL VOLUME 89.6 fl (80.0-94.0); MEAN CORPUSCULAR HEMOGLOBIN 31.5 pg (27.0-31.0); MEAN CORPUSCULAR HGB CONC 35.1 g/dL (33.0-37.0); RBC 5.23 Mil/uL (4.40-5.90); RED CELL DISTRIBUTION WIDTH 13.1 % (11.5-14.5); WHITE BLOOD COUNT 8.3 K/uL (4.8-10.8)
[2018-02-20 07:13] LABS: BLOOD UREA NITROGEN 19 mg/dl (9-20); CALCIUM 9.5 mg/dL (8.4-10.2); GFR AFRICAN-AMERICAN > 60; GFR NON-AFRICAN AMERICAN > 60
--- NOTE | 2018-02-20 07:59 | CP.PCM.PN ---
<Jolly Alvarado - Last Filed: 02/20/18 14:17> Subjective - Date & Time of Evaluation Date of Evaluation: 02/20/18 Time of Evaluation: 07:35 - Subjective Subjective: Case discussed wtih Dr. Kumar Alvarado Kerr, , PGY-1 Patient seen and examined at bedside this AM. 23 y/o M POD 3 s/p surgery for fracture of left ulnar & radial bones, which occurred on 02/16/2018 after falling off of his skateboard onto his left arm. Patient is laying in bed with left arm elevated above heart via a pole with splint in place. Pain remains afebrile with pain well controlled. Patient is tolerating regular diet &voiding without difficult. Patient is ambulatory. Objective - Vital Signs/Intake and Output Vital Signs (last 24 hours): Temp Pulse Resp BP Pulse Ox 99.4 F 81 18 128/76 98 02/20/18 07:54 02/20/18 07:54 02/20/18 07:54 02/20/18 07:54 02/20/18 07:54 - Medications Medications: Current Medications Hydromorphone HCl (Dilaudid) 1 mg IVP Q4 PRN PRN Reason: Pain, severe (8-10) Cefazolin Sodium/Dextrose (Ancef Iv 2 Gm Duplex) 2 gm in 50 mls @ 50 mls/hr IVPB STAT MICKIE PRN Reason: Protocol Last Admin: 02/19/18 14:44 Dose: 50 mls/hr Lactated Ringer's (Lactated Ringer's) 1,000 mls @ 100 mls/hr IV .Q10H [facility] Last Admin: 02/19/18 00:00 Dose: Not Given Cefazolin Sodium/Dextrose (Ancef Iv 2 Gm Duplex) 2 gm in 50 mls @ 50 mls/hr IVPB Q8@0600,1400,2200 MICKIE PRN Reason: Protocol Last Admin: 02/20/18 05:16 Dose: 50 mls/hr Morphine Sulfate (Morphine) 2 mg IVP Q4 PRN PRN Reason: Pain, moderate (4-7) Last Admin: 02/18/18 01:04 Dose: 2 mg Morphine Sulfate (Morphine) 4 mg IVP Q4 PRN PRN Reason: Pain, severe (8-10) Ondansetron HCl (Zofran Inj) 4 mg IVP Q6 PRN PRN Reason: Nausea/Vomiting Oxycodone/Acetaminophen (Percocet 5/325 Mg Tab) 1 tab PO Q4 PRN PRN Reason: Pain, Mild (1-3) Stop: 02/20/18 17:37 Oxycodone/Acetaminophen (Percocet 5/325 Mg Tab) 2 tab PO Q6 PRN PRN Reason: Pain, moderate (4-7) Stop: 02/20/18 17:37 Last Admin: 02/17/18 23:04 Dose: 2 tab - Labs Labs: 02/20/18 05:17 02/20/18 05:17 PT 11.2 Seconds (9.8-13.1) 02/16/18 18:50 INR 1.0 02/16/18 18:50 APTT 25.1 Seconds (25.6-37.1) L 02/16/18 18:50 - Constitutional Appears: Well, Non-toxic - Head Exam Head Exam: ATRAUMATIC - Eye Exam Eye Exam: EOMI - ENT Exam ENT Exam: Mucous Membranes Moist - Neck Exam Neck Exam: Full ROM - Respiratory Exam Respiratory Exam: Clear to Ausculation Bilateral - Cardiovascular Exam Cardiovascular Exam: REGULAR RHYTHM, +S1, +S2 - GI/Abdominal Exam GI & Abdominal Exam: Soft, Normal Bowel Sounds - Extremities Exam Extremities Exam: Normal Inspection - Neurological Exam Neurological Exam: Oriented x3 Additional comments: Sensation & movement of digits in b/l upper extremities intact. Assessment and Plan - Assessment and Plan (Free Text) Assessment: A/P: 23 y/o M POD 3 s/p open reduction internal fixation of left forearm displaced fracture of ulna & radius. Patient presented to the ED with complaints of left arm pain after falling off his skateboard. Patient was found to have fracture of forearm. 1. Open Left forearm Displaced fracture of ulna & radius mid shaft- Acute 2. S/P ORIF (open reduction internal fixation) fracture with Incision & drainage of wound- Acute 3. Open Wound of Forearm- Acute -Will continue pain management as needed -Patient's long arm splint was converted to long arm cast -As per Ortho, Dr. Giovanny Hawkins: continue IV ancef due to open wound for 1 more day. -Discharge patient tomorrow with PO Bactrim & Augmentin x 2 wks 4. DVT prophylaxis -Patient is ambulatory <Catrina Heath - Last Filed: 02/20/18 16:23> Objective - Vital Signs/Intake and Output Vital Signs (last 24 hours): Temp Pulse Resp BP Pulse Ox 98.6 F 87 18 119/79 97 02/20/18 16:13 02/20/18 16:13 02/20/18 16:13 02/20/18 16:13 02/20/18 16:13 - Medications Medications: Current Medications Hydromorphone HCl (Dilaudid) 1 mg IVP Q4 PRN PRN Reason: Pain, severe (8-10) Cefazolin Sodium/Dextrose (Ancef Iv 2 Gm Duplex) 2 gm in 50 mls @ 50 mls/hr IVPB STAT MICKIE PRN Reason: Protocol Last Admin: 02/19/18 14:44 Dose: 50 mls/hr Lactated Ringer's (Lactated Ringer's) 1,000 mls @ 100 mls/hr IV .Q10H [facility] Last Admin: 02/19/18 00:00 Dose: Not Given Cefazolin Sodium/Dextrose (Ancef Iv 2 Gm Duplex) 2 gm in 50 mls @ 50 mls/hr IVPB Q8@0600,1400,2200 MICKIE PRN Reason: Protocol Last Admin: 02/20/18 13:19 Dose: 50 mls/hr Morphine Sulfate (Morphine) 2 mg IVP Q4 PRN PRN Reason: Pain, moderate (4-7) Last Admin: 02/18/18 01:04 Dose: 2 mg Morphine Sulfate (Morphine) 4 mg IVP Q4 PRN PRN Reason: Pain, severe (8-10) Ondansetron HCl (Zofran Inj) 4 mg IVP Q6 PRN PRN Reason: Nausea/Vomiting Oxycodone/Acetaminophen (Percocet 5/325 Mg Tab) 1 tab PO Q4 PRN PRN Reason: Pain, Mild (1-3) Stop: 02/20/18 17:37 Oxycodone/Acetaminophen (Percocet 5/325 Mg Tab) 2 tab PO Q6 PRN PRN Reason: Pain, moderate (4-7) Stop: 02/20/18 17:37 Last Admin: 02/17/18 23:04 Dose: 2 tab - Labs Labs: 02/20/18 05:17 02/20/18 05:17 PT 11.2 Seconds (9.8-13.1) 02/16/18 18:50 INR 1.0 02/16/18 18:50 APTT 25.1 Seconds (25.6-37.1) L 02/16/18 18:50 Assessment and Plan (1) Open left forearm fracture Status: Acute (2) S/P ORIF (open reduction internal fixation) fracture Status: Acute (3) Open wound of forearm Status: Acute Attending/Attestation - Attestation I have personally seen and examined this patient.: Yes I have fully participated in the care of the patient.: Yes I have reviewed all pertinent clinical information, including history, physical exam and plan: Yes Notes (Text): Discussed case with Ortho - rec to continue IV antibiotics x 1 more day then d/ c in am on 2 more weeks of PO antibiotics
--- NOTE | 2018-02-20 08:28 | CP.PCM.PN ---
Subjective - Date & Time of Evaluation Date of Evaluation: 02/20/18 Time of Evaluation: 08:00 - Subjective Subjective: Patient seen and examined with Dr. Sutton at bedside comfortable. Pain well controlled despite refusing any narcotics postop. No new complaints. Objective - Vital Signs/Intake and Output Vital Signs (last 24 hours): Temp Pulse Resp BP Pulse Ox 99.4 F 81 18 128/76 98 02/20/18 07:54 02/20/18 07:54 02/20/18 07:54 02/20/18 07:54 02/20/18 07:54 - Medications Medications: Current Medications Hydromorphone HCl (Dilaudid) 1 mg IVP Q4 PRN PRN Reason: Pain, severe (8-10) Cefazolin Sodium/Dextrose (Ancef Iv 2 Gm Duplex) 2 gm in 50 mls @ 50 mls/hr IVPB STAT MICKIE PRN Reason: Protocol Last Admin: 02/19/18 14:44 Dose: 50 mls/hr Lactated Ringer's (Lactated Ringer's) 1,000 mls @ 100 mls/hr IV .Q10H [facility] Last Admin: 02/19/18 00:00 Dose: Not Given Cefazolin Sodium/Dextrose (Ancef Iv 2 Gm Duplex) 2 gm in 50 mls @ 50 mls/hr IVPB Q8@0600,1400,2200 MICKIE PRN Reason: Protocol Last Admin: 02/20/18 05:16 Dose: 50 mls/hr Morphine Sulfate (Morphine) 2 mg IVP Q4 PRN PRN Reason: Pain, moderate (4-7) Last Admin: 02/18/18 01:04 Dose: 2 mg Morphine Sulfate (Morphine) 4 mg IVP Q4 PRN PRN Reason: Pain, severe (8-10) Ondansetron HCl (Zofran Inj) 4 mg IVP Q6 PRN PRN Reason: Nausea/Vomiting Oxycodone/Acetaminophen (Percocet 5/325 Mg Tab) 1 tab PO Q4 PRN PRN Reason: Pain, Mild (1-3) Stop: 02/20/18 17:37 Oxycodone/Acetaminophen (Percocet 5/325 Mg Tab) 2 tab PO Q6 PRN PRN Reason: Pain, moderate (4-7) Stop: 02/20/18 17:37 Last Admin: 02/17/18 23:04 Dose: 2 tab - Labs Labs: 02/20/18 05:17 02/20/18 05:17 PT 11.2 Seconds (9.8-13.1) 02/16/18 18:50 INR 1.0 02/16/18 18:50 APTT 25.1 Seconds (25.6-37.1) L 02/16/18 18:50 - Extremities Exam Additional comments: LUE: Long arm splint CDI, splint removed revealing operative wounds CDI with jez , no drainage, mild to mod swelling sensation intact MN/UN/RN motor intact MN/UN/RN 2 sec cap refill all fingers comps soft NT Assessment and Plan (1) S/P ORIF (open reduction internal fixation) fracture Assessment & Plan: POD #3 s/p L wrist washout and ORIF both bones fx doing well -long arm splint converted to long arm cast -elevate LUE -continue IV ancef until tomorrow, then discharge to home with Bactrim Q12 and Augmentin 875/125mg Q8, both x 2 weeks -NWB LUE -above d/w Dr. Sutton in agreement Status: Acute
[2018-02-20] MEDS ORDERED: ceFAZolin IV 2 gm in Dextrose 2 GM/50 ML BAG IVPB SCH (22:07)
[2018-02-20 23:31] VITALS: RESP 20
[2018-02-21] MEDS ORDERED: ceFAZolin IV 2 gm in Dextrose 2 GM/50 ML BAG IVPB SCH (06:00)
--- NOTE | 2018-02-21 07:21 | CP.PCM.DIS ---
Addendum entered and electronically signed by Jolly Alvarado MD 02/22/18 07:29: A/P (cont'd) Fracture to the left forearm with ORIF -Patient will follow up with Dr. Giovanny Hawkins as an outpatient -See management as stated below Original Note: <Jolly Alvarado - Last Filed: 02/22/18 07:22> Provider - Provider Date of Admission: 02/16/18 20:33 Attending physician: Gregoria Hoff DO Time Spent in preparation of Discharge (in minutes): 20 Diagnosis - Discharge Diagnosis (1) Open wound of forearm Status: Acute (2) S/P ORIF (open reduction internal fixation) fracture Status: Acute Hospital Course - Lab Results Lab Results: Micro Results 02/16/18 19:20 Blood Blood Culture - Preliminary NO GROWTH AFTER 4 DAYS 02/16/18 18:50 Blood Blood Culture - Preliminary NO GROWTH AFTER 4 DAYS Most Recent Lab Values WBC 8.3 K/uL (4.8-10.8) 02/20/18 05:17 RBC 5.23 Mil/uL (4.40-5.90) 02/20/18 05:17 Hgb 16.5 g/dL (12.0-18.0) 02/20/18 05:17 Hct 46.9 % (35.0-51.0) 02/20/18 05:17 MCV 89.6 fl (80.0-94.0) 02/20/18 05:17 MCH 31.5 pg (27.0-31.0) H 02/20/18 05:17 MCHC 35.1 g/dL (33.0-37.0) 02/20/18 05:17 RDW 13.1 % (11.5-14.5) 02/20/18 05:17 Plt Count 218 K/uL (130-400) 02/20/18 05:17 MPV 9.6 fl (7.2-11.7) 02/19/18 05:30 Neut % (Auto) 77.1 % (50.0-75.0) H 02/19/18 05:30 Lymph % (Auto) 11.6 % (20.0-40.0) L 02/19/18 05:30 [place] % (Auto) 10.8 % (0.0-10.0) H 02/19/18 05:30 Eos % (Auto) 0.4 % (0.0-4.0) 02/19/18 05:30 Baso % (Auto) 0.1 % (0.0-2.0) 02/19/18 05:30 Neut # (Auto) 8.6 K/uL (1.8-7.0) H 02/19/18 05:30 Lymph # (Auto) 1.3 K/uL (1.0-4.3) 02/19/18 05:30 [place] # (Auto) 1.2 K/uL (0.0-0.8) H 02/19/18 05:30 Eos # (Auto) 0.0 K/uL (0.0-0.7) 02/19/18 05:30 Baso # (Auto) 0.0 K/uL (0.0-0.2) 02/19/18 05:30 PT 11.2 Seconds (9.8-13.1) 02/16/18 18:50 INR 1.0 02/16/18 18:50 APTT 25.1 Seconds (25.6-37.1) L 02/16/18 18:50 Sodium 140 mmol/l (132-148) 02/20/18 05:17 Potassium 3.8 MMOL/L (3.6-5.0) 02/20/18 05:17 Chloride 99 mmol/L (98-107) 02/20/18 05:17 Carbon Dioxide 31 mmol/L (22-30) H 02/20/18 05:17 Anion Gap 14 (10-20) 02/20/18 05:17 BUN 19 mg/dl (9-20) 02/20/18 05:17 Creatinine 1.0 mg/dl (0.8-1.5) 02/20/18 05:17 Est GFR ( Amer) > 60 02/20/18 05:17 Est GFR (Non-Af Amer) > 60 02/20/18 05:17 Random Glucose 101 mg/dL (75-110) 02/20/18 05:17 Calcium 9.5 mg/dL (8.4-10.2) 02/20/18 05:17 Total Bilirubin 1.2 mg/dl (0.2-1.3) 02/16/18 18:50 AST 45 U/L (17-59) 02/16/18 18:50 ALT 77 U/L (21-72) H 02/16/18 18:50 Alkaline Phosphatase 74 U/L (38-126) 02/16/18 18:50 Total Protein 7.3 G/DL (6.3-8.2) 02/16/18 18:50 Albumin 4.7 g/dL (3.5-5.0) 02/16/18 18:50 Globulin 2.6 gm/dL (2.2-3.9) 02/16/18 18:50 Albumin/Globulin Ratio 1.8 (1.0-2.1) 02/16/18 18:50 Blood Type B POSITIVE 02/16/18 18:50 Blood Type Confirm B POSITIVE 02/17/18 18:19 Antibody Screen Negative 02/16/18 18:50 BBK History Checked No verified bt 02/16/18 18:50 - Hospital Course Hospital Course: Case discussed wtih Dr. Kumar Banks, , PGY-1 Patient seen and examined at bedside this AM. A/P: 23 y/o M POD 4 s/p open reduction internal fixation of open left forearm fracture. Injury occurred on 02/16/2018 after falling off of his skateboard. Patient is laying in bed, comfortable with left arm elevated in long arm cast. Pain is afebrile, with no current complaints of pain. Patient is tolerating regular PO diet, voiding without difficult & ambulatory. 1. S/P ORIF (open reduction internal fixation) fracture with Incision & drainage of wound- Acute -Will continue pain management PRN -Patient's left upper extremity in long arm cast -Patient will follow up with Dr. Giovanny Hawkins as outpatient -Discharge today with PO Bactrim & Augmentin x 2 wks 2. Open Wound of Forearm- Acute -Patient will take PO antibiotics as mentioned above 3. DVT prophylaxis -Patient is ambulatory Discharge Exam - Head Exam Head Exam: ATRAUMATIC - Eye Exam Eye Exam: EOMI - Neck Exam Neck exam: Full Rom - Respiratory Exam Respiratory Exam: Clear to PA & Lateral - Cardiovascular Exam Cardiovascular Exam: REGULAR RHYTHM, +S1, +S2 - GI/Abdominal Exam GI & Abdominal Exam: Normal Bowel Sounds, Soft, Unremarkable - Extremities Exam Extremities exam: normal inspection - Neurological Exam Neurological exam: Oriented x3 Additional comments: sensation and movement of digits b/l upper extremities intact - Psychiatric Exam Psychiatric exam: Normal Mood - Skin Skin Exam: Dry, Intact Discharge Plan - Discharge Medications Prescriptions: Amoxicillin/Clavulanate [Augmentin 875 MG-125 MG] 1 tab PO Q12 #28 tab Sulfamethoxazole/Trimethoprim [Bactrim Ds Tablet] 1 each PO Q12 #28 tablet Tramadol HCl [Ultram] 50 mg PO Q8 PRN #15 tablet PRN Reason: Pain, Moderate (4-7) - Follow Up Plan Condition: FAIR Disposition: HOME/ ROUTINE Instructions: Forearm Fracture (DC), Open Reduction and Internal Fixation Surgery (DC), Wound Incision and Drainage (DC) Additional Instructions: follow up with ortho md 1 week appt FP clinic in 1-2 wks keep LUE elevated Referrals: [facility] [Outside] Whitney Man MD [Staff Provider] - <Catrina Heath - Last Filed: 02/22/18 14:58> Provider - Provider Date of Admission: 02/16/18 20:33 Attending physician: Gregoria Hoff DO Diagnosis - Discharge Diagnosis (1) Open left forearm fracture Status: Acute (2) S/P ORIF (open reduction internal fixation) fracture Status: Acute (3) Open wound of forearm Status: Acute Hospital Course - Lab Results Lab Results: Micro Results 02/16/18 19:20 Blood Blood Culture - Final NO GROWTH AFTER 5 DAYS 02/16/18 19:20 Blood Gram Stain - Final TEST NOT PERFORMED 02/16/18 18:50 Blood Blood Culture - Final NO GROWTH AFTER 5 DAYS 02/16/18 18:50 Blood Gram Stain - Final TEST NOT PERFORMED Most Recent Lab Values WBC 8.3 K/uL (4.8-10.8) 02/20/18 05:17 RBC 5.23 Mil/uL (4.40-5.90) 02/20/18 05:17 Hgb 16.5 g/dL (12.0-18.0) 02/20/18 05:17 Hct 46.9 % (35.0-51.0) 02/20/18 05:17 MCV 89.6 fl (80.0-94.0) 02/20/18 05:17 MCH 31.5 pg (27.0-31.0) H 02/20/18 05:17 MCHC 35.1 g/dL (33.0-37.0) 02/20/18 05:17 RDW 13.1 % (11.5-14.5) 02/20/18 05:17 Plt Count 218 K/uL (130-400) 02/20/18 05:17 MPV 9.6 fl (7.2-11.7) 02/19/18 05:30 Neut % (Auto) 77.1 % (50.0-75.0) H 02/19/18 05:30 Lymph % (Auto) 11.6 % (20.0-40.0) L 02/19/18 05:30 [place] % (Auto) 10.8 % (0.0-10.0) H 02/19/18 05:30 Eos % (Auto) 0.4 % (0.0-4.0) 02/19/18 05:30 Baso % (Auto) 0.1 % (0.0-2.0) 02/19/18 05:30 Neut # (Auto) 8.6 K/uL (1.8-7.0) H 02/19/18 05:30 Lymph # (Auto) 1.3 K/uL (1.0-4.3) 02/19/18 05:30 [place] # (Auto) 1.2 K/uL (0.0-0.8) H 02/19/18 05:30 Eos # (Auto) 0.0 K/uL (0.0-0.7) 02/19/18 05:30 Baso # (Auto) 0.0 K/uL (0.0-0.2) 02/19/18 05:30 PT 11.2 Seconds (9.8-13.1) 02/16/18 18:50 INR 1.0 02/16/18 18:50 APTT 25.1 Seconds (25.6-37.1) L 02/16/18 18:50 Sodium 140 mmol/l (132-148) 02/20/18 05:17 Potassium 3.8 MMOL/L (3.6-5.0) 02/20/18 05:17 Chloride 99 mmol/L (98-107) 02/20/18 05:17 Carbon Dioxide 31 mmol/L (22-30) H 02/20/18 05:17 Anion Gap 14 (10-20) 02/20/18 05:17 BUN 19 mg/dl (9-20) 02/20/18 05:17 Creatinine 1.0 mg/dl (0.8-1.5) 02/20/18 05:17 Est GFR ( Amer) > 60 02/20/18 05:17 Est GFR (Non-Af Amer) > 60 02/20/18 05:17 Random Glucose 101 mg/dL (75-110) 02/20/18 05:17 Calcium 9.5 mg/dL (8.4-10.2) 02/20/18 05:17 Total Bilirubin 1.2 mg/dl (0.2-1.3) 02/16/18 18:50 AST 45 U/L (17-59) 02/16/18 18:50 ALT 77 U/L (21-72) H 02/16/18 18:50 Alkaline Phosphatase 74 U/L (38-126) 02/16/18 18:50 Total Protein 7.3 G/DL (6.3-8.2) 02/16/18 18:50 Albumin 4.7 g/dL (3.5-5.0) 02/16/18 18:50 Globulin 2.6 gm/dL (2.2-3.9) 02/16/18 18:50 Albumin/Globulin Ratio 1.8 (1.0-2.1) 02/16/18 18:50 Blood Type B POSITIVE 02/16/18 18:50 Blood Type Confirm B POSITIVE 02/17/18 18:19 Antibody Screen Negative 02/16/18 18:50 BBK History Checked No verified bt 02/16/18 18:50 Attending/Attestation - Attestation I have personally seen and examined this patient.: Yes I have fully participated in the care of the patient.: Yes I have reviewed all pertinent clinical information, including history, physical exam and plan: Yes
--- NOTE | 2018-02-21 08:09 | CP.PCM.PN ---
Subjective - Date & Time of Evaluation Date of Evaluation: 02/21/18 Time of Evaluation: 07:30 - Subjective Subjective: Patient seen and examined at bedside comfortable. Pain well controlled. Denies CP/COB/N/V/D. Objective - Vital Signs/Intake and Output Vital Signs (last 24 hours): Temp Pulse Resp BP Pulse Ox 97.9 F 70 20 116/70 97 02/20/18 23:31 02/20/18 23:31 02/20/18 23:31 02/20/18 23:31 02/20/18 23:31 - Medications Medications: Current Medications Hydromorphone HCl (Dilaudid) 1 mg IVP Q4 PRN PRN Reason: Pain, severe (8-10) Lactated Ringer's (Lactated Ringer's) 1,000 mls @ 100 mls/hr IV .Q10H [facility] Last Admin: 02/19/18 00:00 Dose: Not Given Cefazolin Sodium/Dextrose (Ancef Iv 2 Gm Duplex) 2 gm in 50 mls @ 100 mls/hr IVPB Q8@0600,1400,2200 [facility] PRN Reason: Protocol Last Admin: 02/21/18 06:10 Dose: 100 mls/hr Morphine Sulfate (Morphine) 2 mg IVP Q4 PRN PRN Reason: Pain, moderate (4-7) Last Admin: 02/18/18 01:04 Dose: 2 mg Morphine Sulfate (Morphine) 4 mg IVP Q4 PRN PRN Reason: Pain, severe (8-10) Ondansetron HCl (Zofran Inj) 4 mg IVP Q6 PRN PRN Reason: Nausea/Vomiting - Labs Labs: 02/20/18 05:17 02/20/18 05:17 PT 11.2 Seconds (9.8-13.1) 02/16/18 18:50 INR 1.0 02/16/18 18:50 APTT 25.1 Seconds (25.6-37.1) L 02/16/18 18:50 - Extremities Exam Additional comments: LUE: Long arm cast CDI sensation intact MN/UN/RN motor intact MN/UN/RN 2 sec cap refill all fingers comps soft NT Assessment and Plan (1) S/P ORIF (open reduction internal fixation) fracture Assessment & Plan: POD #4 s/p L wrist washout and ORIF both bones fx doing well -elevate LUE -discharge to home with Bactrim Q12 and Augmentin 875/125mg Q8, both x 2 weeks -NWB LUE -orthopedically stable to d/c to home today -f/u in office next Tues, call for appt -above d/w Dr. Sutton in agreement Status: Acute
[2018-02-21 08:15] VITALS: BP 121/79; PULSE 90; TEMP 97.7; O2SAT 98
== END 2018-02-21 12:36 | disposition home or self-care (01) | DRG 502 ==
LOC: H.ER 18:00 → H.ERHOLD 20:33 → H.MEDSURG1 21:38
PROVIDERS: ADMIT Student in an Organized Health Care Education/Training Program; ATTEND Student in an Organized Health Care Education/Training Program
PROC: 3E0234Z Introduction of Serum, Toxoid and Vaccine into Muscle, Percutaneous Approach (ICD-10-PCS; 2018-02-16)
PROC: 0PSL04Z Reposition Left Ulna with Internal Fixation Device, Open Approach (ICD-10-PCS; 2018-02-17)
PROC: 0PU Upper Bones, Supplement (ICD-10-PCS; 2018-02-17)
PROC: 3E10X8Z Irrigation of Skin and Mucous Membranes using Irrigating Substance (ICD-10-PCS; 2018-02-17)
PROC: 0PSJ04Z Reposition Left Radius with Internal Fixation Device, Open Approach (ICD-10-PCS; principal; 2018-02-17 11:30)
PROC: 0JQH0ZZ Repair Left Lower Arm Subcutaneous Tissue and Fascia, Open Approach (ICD-10-PCS; 2018-02-17 11:30)
DX: S52.202B Unspecified fracture of shaft of left ulna, initial encounter for open fracture type I or II (principal); F12.90 Cannabis use, unspecified, uncomplicated; V00.131A Fall from skateboard, initial encounter; Y93.51 Activity, roller skating (inline) and skateboarding; S52.302A Unspecified fracture of shaft of left radius, initial encounter for closed fracture; Z23 Encounter for immunization

== ENCOUNTER 2018-11-06 16:14 | Emergency (ER) | payer OTHER, MEDICAID ==
[2018-11-06 16:48] VITALS: BP 131/84; TEMP 98.3
[2018-11-06] MEDS ORDERED: Lidocaine 1% Inj (20ml) IJ STA (17:12)
[2018-11-06] MEDS ORDERED: Povidone Iodine Topical 10% Sol TOP STA (17:13)
--- NOTE | 2018-11-06 17:25 | ED PDOC ---
HPI: General Adult Time Seen by Provider: 11/06/18 16:53 Chief Complaint (Nursing): Abnormal Skin Integrity Chief Complaint (Provider): Abnormal Skin Integrity History Per: Patient History/Exam Limitations: no limitations Onset/Duration Of Symptoms: Hrs Additional Complaint(s): 23 y/o male with no significant PMH who presents to the ED due to left thumb laceration. Patient states he was cutting food at work with a knife and slipped cutting his left thumb. Patient denies taking any pain medication, numbness, or tingles. Patient is up to date with tetanus shot. Last received on February 2018. PMD: none provided Past Medical History Reviewed: Historical Data, Nursing Documentation, Vital Signs Vital Signs: Last Vital Signs Temp 98.3 F 11/06/18 16:45 Pulse 107 H 11/06/18 16:45 Resp 20 11/06/18 16:45 BP 131/84 11/06/18 16:45 Pulse Ox 99 11/06/18 16:45 - Medical History PMH: No Chronic Diseases - Family History Family History: States: Unknown Family Hx - Home Medications Home Medications: Ambulatory Orders Medication Instructions Recorded Amoxicillin/Clavulanate [Augmentin 1 tab PO Q12 #28 tab 02/21/18 875 MG-125 MG] Sulfamethoxazole/Trimethoprim 1 each PO Q12 #28 tablet 02/21/18 [Bactrim Ds Tablet] Tramadol HCl [Ultram] 50 mg PO Q8 PRN #15 tablet 02/21/18 - Allergies Allergies/Adverse Reactions: Allergies Allergy/AdvReac Type Severity Reaction Status Date / Time No Known Allergies Allergy Verified 11/06/18 16:45 Review of Systems ROS Statement: Except As Marked, All Systems Reviewed And Found Negative Musculoskeletal: Positive for: Hand Pain (left thumb pain) Physical Exam - Reviewed Nursing Documentation Reviewed: Yes Vital Signs Reviewed: Yes - Physical Exam Appears: Positive for: No Acute Distress Extremity: Positive for: Normal ROM (at left IP and MCP), Capillary Refill (less than 2 seconds), Other (Left thumb has 2cm by 1cm flap with minimal bleeding. left radial pulse is 2+.) Neurological/Psych: Positive for: Awake, Alert, Oriented (x3) Comments: Sensation to light touch intact left thumb. - ECG O2 Sat by Pulse Oximetry: 99 Medical Decision Making Medical Decision Making: Time:[id number] Initial Plan: -Betadine 5ml TOP once -Lidocaine 20ml 1715: Laceration repaired (see procedure note). 1840: Patient tolerated procedure well. Recommended to have suture removed 7-10 days in the ER or PMD. Return instruction given. Scribe Attestation: Documented by Viky Vargas, acting as a scribe for Kianna Long. Provider Scribe Attestation: All medical record entries made by the Scribe were at my direction and personally dictated by me. I have reviewed the chart and agree that the record accurately reflects my personal performance of the history, physical exam, medical decision making, and the department course for this patient. I have also personally directed, reviewed, and agree with the discharge instructions and disposition. Procedures - Laceration/Wound Repair Left Hand Wound Length (cm): 3 Wound's Depth, Shape: superficial, flap Wound Explored: clean Irrigated w/ Saline (ccs): 250 Betadine Prep?: Yes Anesthesia: 1% Lidocaine Volume Anesthetic (ccs): 3 Wound Repaired With: Sutures Suture Size/Type: 5:0, proline Number of Sutures: 9 Wound Complexity: Simple Sterile Dressing Applied?: Yes Disposition - Clinical Impression Clinical Impression: Thumb laceration - Patient ED Disposition Is Patient to be Admitted: No - Disposition Referrals: [facility] [Outside] Mansi Bruner MD [Staff Provider] - Disposition: Routine/Home Disposition Time: 18:45 Condition: STABLE Additional Instructions: You have [address] that will need to be removed in 7 - 10 days so please come back to the ER or go to your primary care doctor. Keep area covered and dry for the 24hrs and then remove dressing and wash gently with soap and water. Keep covered with gauze or bandage and use antibiotic ointment to prevent infection. Do not take oral antibiotics. Return to ER sooner if you develop fevers or pus drainage. Instructions: Laceration Repair With Stitches (DC) Forms: [employer] ([place]) Print Language: [email or web address]
[2018-11-06] MEDS ORDERED: Lidocaine 1% Inj (20ml) ONE (17:33)
[2018-11-06] MEDS ORDERED: Povidone Iodine Topical 10% Sol ONE (17:34)
[2018-11-06 18:57] VITALS: PULSE 61; RESP 18
[2018-11-07 01:17] VITALS: O2SAT 99
== END 2018-11-06 18:57 | disposition home or self-care (01) ==
LOC: H.ER 16:14
DX: S61.012A Laceration without foreign body of left thumb without damage to nail, initial encounter (principal); W26.0XXA Contact with knife, initial encounter; Y93.G1 Activity, food preparation and clean up; Y99.0 Civilian activity done for income or pay